=== PATIENT | female | born 1965 | race Caucasian/White ===

== ENCOUNTER 2023-01-11 10:42 | Observation (INO) | payer OTHER ==
[2023-01-11] MEDS ORDERED: NITROGLYCERIN OINT 1 INCH/GM PACKET TOPICAL STA (11:06)
[2023-01-11] MEDS ORDERED: ASPIRIN 81 MG PO STA (11:06)
--- NOTE | 2023-01-11 11:09 | ED ---
General Adult HPI - General Chief complaint: Chest Pain Stated complaint: Chest Pain Time Seen by Provider: 01/11/23 10:55 Source: patient, RN notes reviewed, old records reviewed Mode of arrival: EMS Limitations: no limitations - History of Present Illness Initial comments: This is a 57-year-old female presents emergency Department complaining of chest pain. Patient states she was up walking around when she started having chest pain went down her left arm and then she became short of breath and hot. Patient states she did not begin to sweat but she was feeling very hot. Patient states he gave her nitroglycerin at the facility and it did help her pain. Patient isn't [facility] for pill abuse as well as heroin abuse. Patient states she also has liver disease secondary to taking Dilantin long-term for seizure disorder. Patient states she is no longer on any medication for the seizures. Patient states she still is having some chest pain but it is improved from before. Patient denies any nausea vomiting. Patient denies headache patient denies numbness weakness. Patient denies any lightheadedness or dizziness. - Related Data Home Medications Medication Instructions Recorded Confirmed Calcium, Magnesium, Zinc, With Vit 1 tab PO TID PRN 01/11/23 01/11/23 D3 Docusate [Colace] 100 mg PO BID PRN 01/11/23 01/11/23 EPINEPHrine (Auto Inject) [Epipen] 0.3 mg IM ONCE PRN 01/11/23 01/11/23 Hyoscyamine Sulfate [Levsin] 0.125 mg PO QID PRN 01/11/23 01/11/23 Ibuprofen [Motrin Ib] 600 mg PO Q6H PRN 01/11/23 01/11/23 Lidocaine [Aspercreme Patch] 1 patch TRANSDERM DAILY 01/11/23 01/11/23 Magnesium Hydroxide [Milk of 2,400 mg PO BID PRN 01/11/23 01/11/23 Magnesia] Mirtazapine [Remeron] 15 mg PO HS 01/11/23 01/11/23 Rimegepant Sulfate [Nurtec Odt] 75 mg PO DAILY PRN 01/11/23 01/11/23 buprenorphine HCL [Subutex] 4 mg SL BID 01/11/23 01/11/23 cloNIDine HCL [Catapres] 0.1 mg PO Q4H PRN 01/11/23 01/11/23 ondansetron HCL [Ondansetron HCl] 8 mg PO Q6H PRN 01/11/23 01/11/23 Allergies Allergy/AdvReac Type Severity Reaction Status Date / Time Penicillins Allergy Anaphylaxis Verified 01/11/23 12:22 bee venom protein (honey bee) AdvReac Rash/Hives Verified 01/11/23 12:22 Review of Systems ROS Statement: Those systems with pertinent positive or pertinent negative responses have been documented in the HPI. ROS Other: All systems not noted in ROS Statement are negative. Past Medical History Past Medical History: Liver Disease, Thyroid Disorder Past Surgical History: Cholecystectomy, Hysterectomy, Orthopedic Surgery Past Psychological History: Depression Smoking Status: Current every day smoker Past Alcohol Use History: Abuse Past Drug Use History: Heroin, Opiates General Exam - General Exam Comments Initial Comments: GENERAL: Patient is well-developed and well-nourished. Patient is nontoxic and well- hydrated and is in mild distress. ENT: Neck is soft and supple. No significant lymphadenopathy is noted. Oropharynx is clear. Moist mucous membranes. Neck has full range of motion without eliciting any pain. EYES: The sclera were anicteric and conjunctiva were pink and moist. Extraocular movements were intact and pupils were equal round and reactive to light. Eyelids were unremarkable. PULMONARY: Unlabored respirations. Good breath sounds bilaterally. No audible rales rhonchi or wheezing was noted. CARDIOVASCULAR: There is a regular rate and rhythm without any murmurs gallops or rubs. ABDOMEN: Soft and nontender with normal bowel sounds. SKIN: Skin is clear with no lesions or rashes and otherwise unremarkable. NEUROLOGIC: Patient is alert and oriented x3. Cranial nerves II through XII are grossly intact. Motor and sensory are also intact. Normal speech, volume and content. Symmetrical smile. MUSCULOSKELETAL: Normal extremities with adequate strength and full range of motion. LYMPHATICS: No significant lymphadenopathy is noted PSYCHIATRIC: Normal psychiatric evaluation. Limitations: no limitations Course Vital Signs 01/11/23 01/11/23 10:46 10:51 Temperature 98.7 F Pulse Rate 67 68 Respiratory 20 16 Rate Blood Pressure 127/78 126/68 O2 Sat by Pulse 95 98 Oximetry Medical Decision Making - Medical Decision Making EKG is interpreted by myself. EKG shows a sinus rhythm at 64 bpm GA interval is on a 65 QRS is 78 QT interval 34 QTC is 393. Patient's EKG shows no ST segment elevation or depression Was pt. sent in by a medical professional or institution (, IRINA, COMPENSATION COORDINATOR, urgent care, hospital, or fdc...) When possible be specific @ -[facility] sent the patient in Did you speak to anyone other than the patient for history (EMS, parent, family, police, friend...)? What history was obtained from this source @ -No Did you review nursing and triage notes (agree or disagree)? Why? @ -I reviewed and agree with nursing and triage notes Were old charts reviewed (outside hosp., previous admission, EMS record, old EKG, old radiological studies, urgent care reports/EKG's, fdc records)? Report findings @ -No old charts were reviewed Differential Diagnosis (chest pain, altered mental status, abdominal pain women, abdominal pain men, vaginal bleeding, weakness, fever, dyspnea, syncope, headache, dizziness, GI bleed, back pain, seizure, CVA, palpatations, mental health, musculoskeletal)? @ -Differential Chest Pain: Stable Angina, Unstable Angina, STEMI, NSTEMI Aortic Dissection, Pneumothorax, Musculoskeletal, Esophageal Spasm GERD, Cholecystitis, Pancreatitis, Zoster, this is not meant to be an all-inclusive list. EKG interpreted by me (3pts min.). @ -As above X-rays interpreted by me (1pt min.). @ -Chest x-ray shows no acute abnormality CT interpreted by me (1pt min.). @ -None done U/S interpreted by me (1pt. min.). @ -None done What testing was considered but not performed or refused? (CT, X-rays, U/S, labs)? Why? @ -None What meds were considered but not given or refused? Why? @ -None Did you discuss the management of the patient with other professionals (professionals i.e. , IRINA, COMPENSATION COORDINATOR, lab, RT, psych nurse, social worker delinquency prevention, climbing guide, teacher, special technical operations officer, case consultant)? Give summary @ -I spoke with Dr. Cabral she agreed to admit the patient to the patient wrote admitting orders Was smoking cessation discussed for >3mins.? @ -No Was critical care preformed (if so, how long)? @ -No Were there social determinants of health that impacted care today? How? (Homelessness, low income, unemployed, alcoholism, drug addiction, transportation, low edu. Level, literacy, decrease access to med. care, intermediate, rehab)? @ -No Was there de-escalation of care discussed even if they declined (Discuss DNR or withdrawal of care, Hospice)? DNR status @ -No What co-morbidities impacted this encounter? (DM, HTN, Smoking, COPD, CAD, Cancer, CVA, ARF, Chemo, Hep., AIDS, mental health diagnosis, sleep apnea, morbid obesity)? @ -None Was patient admitted / discharged? Hospital course, mention meds given and route, prescriptions, significant lab abnormalities, going to OR and other pertinent info. @ -Patient's lab work was normal. Patient's chest x-ray was normal. Patient continued to have chest pain that was much improved compared to earlier. Patient will be admitted to Dr. Cabral I will write admitting orders and I will consult cardiology Undiagnosed new problem with uncertain prognosis? @ -No Drug Therapy requiring intensive monitoring for toxicity (Heparin, Nitro, Insulin, Cardizem)? @ -No Were any procedures done? @ -No Diagnosis/symptom? @ -Chest pain Acute, or Chronic, or Acute on Chronic? @ -Acute Uncomplicated (without systemic symptoms) or Complicated (systemic symptoms)? @ -Complicated Side effects of treatment? @ -No Exacerbation, Progression, or Severe Exacerbation? @ -No Poses a threat to life or bodily function? How? (Chest pain, USA, MD, pneumonia, PE, COPD, DKA, ARF, appy, cholecystitis, CVA, Diverticulitis, Homicidal, Suicidal, threat to staff... and all critical care pts) @ -Yes this could lead to myocardial infarction which could lead to end organ dysfunction - Lab Data Result diagrams: 01/11/23 11:06 01/11/23 11:06 Lab Results 01/11/23 01/11/23 01/11/23 Range/Units 11:06 11:06 11:06 WBC 4.3 (3.8-10.6) k/uL RBC 4.07 (3.80-5.40) m/uL Hgb 13.0 (11.4-16.0) gm/dL Hct 39.7 (34.0-46.0) % MCV 97.6 (80.0-100.0) fL MCH 32.0 (25.0-35.0) pg MCHC 32.7 (31.0-37.0) g/dL RDW 12.6 (11.5-15.5) % Plt Count 119 L (150-450) k/uL MPV 8.7 Neutrophils % 62 % Lymphocytes % 26 % Monocytes % 6 % Eosinophils % 5 % Basophils % 1 % Neutrophils # 2.6 (1.3-7.7) k/uL Lymphocytes # 1.1 (1.0-4.8) k/uL Monocytes # 0.2 (0-1.0) k/uL Eosinophils # 0.2 (0-0.7) k/uL Basophils # 0.0 (0-0.2) k/uL PT 11.3 (9.0-12.0) sec INR 1.1 (<1.2) APTT 28.8 (22.0-30.0) sec Sodium 137 (137-145) mmol/L Potassium 4.7 (3.5-5.1) mmol/L Chloride 103 (98-107) mmol/L Carbon Dioxide 22 (22-30) mmol/L Anion Gap 12 mmol/L BUN 21 H (7-17) mg/dL Creatinine 0.68 (0.52-1.04) mg/dL Est GFR (CKD-EPI)AfAm >90 (>60 ml/min/1.73 sqM) Est GFR (CKD-EPI)NonAf >90 (>60 ml/min/1.73 sqM) Glucose 83 (74-99) mg/dL Calcium 9.7 (8.4-10.2) mg/dL Magnesium 1.7 (1.6-2.3) mg/dL Total Bilirubin 0.7 (0.2-1.3) mg/dL AST 33 (14-36) U/L ALT 25 (4-34) U/L Alkaline Phosphatase 54 (38-126) U/L Troponin I (0.000-0.034) ng/mL Total Protein 7.7 (6.3-8.2) g/dL Albumin 4.5 (3.5-5.0) g/dL 01/11/23 Range/Units 11:06 WBC (3.8-10.6) k/uL RBC (3.80-5.40) m/uL Hgb (11.4-16.0) gm/dL Hct (34.0-46.0) % MCV (80.0-100.0) fL MCH (25.0-35.0) pg MCHC (31.0-37.0) g/dL RDW (11.5-15.5) % Plt Count (150-450) k/uL MPV Neutrophils % % Lymphocytes % % Monocytes % % Eosinophils % % Basophils % % Neutrophils # (1.3-7.7) k/uL Lymphocytes # (1.0-4.8) k/uL Monocytes # (0-1.0) k/uL Eosinophils # (0-0.7) k/uL Basophils # (0-0.2) k/uL PT (9.0-12.0) sec INR (<1.2) APTT (22.0-30.0) sec Sodium (137-145) mmol/L Potassium (3.5-5.1) mmol/L Chloride (98-107) mmol/L Carbon Dioxide (22-30) mmol/L Anion Gap mmol/L BUN (7-17) mg/dL Creatinine (0.52-1.04) mg/dL Est GFR (CKD-EPI)AfAm (>60 ml/min/1.73 sqM) Est GFR (CKD-EPI)NonAf (>60 ml/min/1.73 sqM) Glucose (74-99) mg/dL Calcium (8.4-10.2) mg/dL Magnesium (1.6-2.3) mg/dL Total Bilirubin (0.2-1.3) mg/dL AST (14-36) U/L ALT (4-34) U/L Alkaline Phosphatase (38-126) U/L Troponin I <0.012 (0.000-0.034) ng/mL Total Protein (6.3-8.2) g/dL Albumin (3.5-5.0) g/dL Disposition Clinical Impression: Chest pain Disposition: ADMITTED IP TO THIS [facility] Referrals: Nonstaff,Physician [Primary Care Provider] - 1-2 days Time of Disposition: 13:16
[2023-01-11 11:37] LABS: Basophils % (A) 1 %; Eosinophils # (A) 0.2 k/uL (0-0.7); Eosinophils % (A) 5 %; HCT 39.7 % (34.0-46.0); Lymphocytes # (A) 1.1 k/uL (1.0-4.8); Lymphocytes % (A) 26 %; MCHC 32.7 g/dL (31.0-37.0); MCV 97.6 fL (80.0-100.0); Mean Platelet Volume 8.7; Monocytes # (A) 0.2 k/uL (0-1.0); Monocytes % (A) 6 %; Neutrophils # (A) 2.6 k/uL (1.3-7.7); Neutrophils % (A) 62 %; Platelet Count 119 k/uL (150-450); RBC 4.07 m/uL (3.80-5.40); RDW 12.6 % (11.5-15.5); WBC 4.3 k/uL (3.8-10.6)
[2023-01-11 11:46] LABS: ALT 25 U/L (4-34); AST 33 U/L (14-36); African American GFR (CKD) >90 (>60 ml/min/1.73 sqM); Albumin 4.5 g/dL (3.5-5.0); Alkaline Phosphatase 54 U/L (38-126); Anion Gap 12 mmol/L; Blood Urea Nitrogen 21 mg/dL (7-17); Calcium 9.7 mg/dL (8.4-10.2); Carbon Dioxide 22 mmol/L (22-30); Chloride 103 mmol/L (98-107); Glucose 83 mg/dL (74-99); Magnesium 1.7 mg/dL (1.6-2.3); Non-African American GFR(CKD) >90 (>60 ml/min/1.73 sqM); Potassium 4.7 mmol/L (3.5-5.1); Sodium 137 mmol/L (137-145); Total Bilirubin 0.7 mg/dL (0.2-1.3); Total Protein 7.7 g/dL (6.3-8.2)
[2023-01-11 12:00] LABS: INR 1.1 (<1.2); Partial Thromboplastin Time 28.8 sec (22.0-30.0); Prothrombin Time 11.3 sec (9.0-12.0)
--- NOTE | 2023-01-11 12:02 | XR ---
EXAMINATION TYPE: XR chest 2V DATE OF EXAM: 01/11/2023 11:51 AM CLINICAL INDICATION:Female, 57 years old with history of Chest Pain; [facility] COMPARISON: None TECHNIQUE: XR chest 2V Frontal and lateral views of the chest. FINDINGS: Lungs/Pleura: There is no evidence of pleural effusion, focal consolidation, or pneumothorax. Pulmonary vascularity: Unremarkable. Heart/mediastinum: Cardiomediastinal silhouette is unremarkable. Musculoskeletal: No acute osseous pathology. IMPRESSION: No acute cardiopulmonary disease/process.
[2023-01-11] MEDS ORDERED: NITROGLYCERIN SL TABS 0.4 MG TAB SUBLINGUAL PRN (13:29)
[2023-01-11] MEDS ORDERED: HYOSCYAMINE SULFATE 0.125 MG TAB PO PRN (15:21)
[2023-01-11] MEDS ORDERED: CALCIUM CARB-VIT D 500 MG-5 MCG TAB PO PRN (15:21)
[2023-01-11] MEDS ORDERED: MAGNESIUM HYDROXIDE 2,400 MG/30 ML CUP PO PRN (15:21)
[2023-01-11] MEDS ORDERED: DOCUSATE 100 MG CAP PO PRN (15:21)
[2023-01-11] MEDS ORDERED: PATIENT'S OWN (Rimegepant Sulfate [Nurtec Odt] 75 MG Tablet) PO PRN (15:21)
[2023-01-11] MEDS ORDERED: ONDANSETRON 4 MG TAB PO PRN (15:21)
--- NOTE | 2023-01-11 15:41 | P.HPIM ---
History of Present Illness H&P Date: 01/11/23 Patient is a 57-year-old female with history of nicotine dependence and opiate dependence, currently in rehab, migraine headaches presented with sudden onset chest pain, substernal, radiating to left arm as well as jaw. She initially thought it was heartburn, presented to her nurse at [facility], and was referred to the emergency. She is currently chest pain-free. She did have associated nausea, dyspnea, and palpitations. She denies ever having similar chest pain. Just prior to chest pain, she was walking. Her last heroin use was 11 days ago, which she inhales, she is also taking oral opiates. She denies any significant family history of cardiovascular disease. She does smoke 5 cigarettes a day, denies any significant alcohol use. She denies any recent travel history or sick contacts. In the ED, vital signs within normal limits, patient is on room air. Platelet 119, BUN 21, creatinine 0.68, troponin negative 2. Chest x-ray independently interpreted. Patient was given nitroglycerin and aspirin in the ED. Cardiology was consulted. Patient is being admitted for observation for further cardiac workup. Pertinent positives and negatives as discussed in HPI, a complete review of systems was performed and all other systems are negative. Patient seen and examined at bedside. Vital signs reviewed General: nontoxic, no distress, appears at stated age Derm: warm, dry Head: atraumatic, normocephalic, symmetric Eyes: EOMI, no lid lag, anicteric sclera, pupils equal round reactive to light ENT: Nose and ears atraumatic Neck: No thyromegaly, supple Mouth: no lip lesion, mucus membranes moist Cardiovascular: S1S2 reg, no murmur, no edema Lungs: clear to auscultation bilateral, no rhonchi, no rales, no wheeze, no accessory muscle use Abdominal: soft, nontender to palpation, no guarding, no appreciable organomegaly Ext: no gross muscle atrophy, muscle strength muscle strength 5 out of 5 in all 4 extremities, no contractures Neuro: CN II-XII grossly intact Psych: Alert, oriented, appropriate affect Assessment/Plan: Active: Atypical chest pain, rule out ACS -Status post aspirin 324, continue aspirin 81 mg daily -Cardiology consulted -Currently chest pain-free -Continue telemetry Migraine headaches -Restarted home therapy -Avoid NSAIDs for now Nicotine dependence -Counseled regarding smoking cessation Thrombocytopenia, mild -Continue to monitor, CBC tomorrow Chronic: Opiate dependence Patient also claims that she has a history of autoimmune hepatitis The patient is admitted with an anticipated less than 2 midnight stay as observation status for evaluation of chest pain. Surrogate decision-maker: Daughter CODE STATUS: Full code DVT prophylaxis: Patient is ambulatory Anticipated discharge date: 1-[address]: Back to [facility] A total of 55 minutes was spent on the care of this complex patient more than 50% of the time was spent in counseling and care coordination. Past Medical History Past Medical History: Liver Disease, Thyroid Disorder Past Surgical History: Cholecystectomy, Hysterectomy, Orthopedic Surgery Past Psychological History: Depression Smoking Status: Current every day smoker Past Alcohol Use History: Abuse Past Drug Use History: Heroin, Opiates Medications and Allergies Home Medications Medication Instructions Recorded Confirmed Type Calcium, Magnesium, Zinc, With Vit 1 tab PO TID PRN 01/11/23 01/11/23 History D3 Docusate [Colace] 100 mg PO BID PRN 01/11/23 01/11/23 History EPINEPHrine (Auto Inject) [Epipen] 0.3 mg IM ONCE PRN 01/11/23 01/11/23 History Hyoscyamine Sulfate [Levsin] 0.125 mg PO QID PRN 01/11/23 01/11/23 History Ibuprofen [Motrin Ib] 600 mg PO Q6H PRN 01/11/23 01/11/23 History Lidocaine [Aspercreme Patch] 1 patch TRANSDERM DAILY 01/11/23 01/11/23 History Magnesium Hydroxide [Milk of 2,400 mg PO BID PRN 01/11/23 01/11/23 History Magnesia] Mirtazapine [Remeron] 15 mg PO HS 01/11/23 01/11/23 History Rimegepant Sulfate [Nurtec Odt] 75 mg PO DAILY PRN 01/11/23 01/11/23 History buprenorphine HCL [Subutex] 4 mg SL BID 01/11/23 01/11/23 History cloNIDine HCL [Catapres] 0.1 mg PO Q4H PRN 01/11/23 01/11/23 History ondansetron HCL [Ondansetron HCl] 8 mg PO Q6H PRN 01/11/23 01/11/23 History Allergies Allergy/AdvReac Type Severity Reaction Status Date / Time Penicillins Allergy Anaphylaxis Verified 01/11/23 12:22 bee venom protein (honey bee) AdvReac Rash/Hives Verified 01/11/23 12:22 Physical Exam Vitals: Vital Signs Temp Pulse Pulse Resp BP BP Pulse Ox 01/11/23 15:14 98.3 F 55 L 19 110/67 100 01/11/23 14:45 68 16 104/60 98 01/11/23 13:00 68 16 108/68 98 01/11/23 10:51 68 16 126/68 98 01/11/23 10:46 98.7 F 67 20 127/78 95 Intake and Output 01/11/23 01/11/23 01/11/23 06:59 14:59 22:59 Other: Weight 56.699 kg Results CBC & Chem 7: 01/11/23 11:06 01/11/23 11:06 Labs: Abnormal Lab Results - Last 24 Hours (Table) 01/11/23 01/11/23 Range/Units 11:06 11:06 Plt Count 119 L (150-450) k/uL BUN 21 H (7-17) mg/dL
[2023-01-11] MEDS ORDERED: SUMAtriptan succinate 25 MG TAB PO STA (15:43)
[2023-01-11] MEDS: ONDANSETRON 4 MG/2 ML VIAL IVP PRN (16:04)
[2023-01-11] MEDS ORDERED: KETOROLAC 15 MG/ML 1 ML VIAL IVP STA (17:01)
[2023-01-11] MEDS ORDERED: METOCLOPRAMIDE 5 MG/ML 2 ML VIAL IVP STA (17:01)
[2023-01-11] MEDS ORDERED: NITROGLYCERIN OINT 1 INCH/GM PACKET TOPICAL SCH (18:00)
[2023-01-11] MEDS: BUPRENORPHINE HCL 2 MG SUBLINGUAL SCH (20:41)
[2023-01-11] MEDS: cloNIDine HCL 0.1 MG TAB PO PRN (20:42)
[2023-01-11] MEDS: MIRTAZAPINE 15 MG TAB PO SCH (20:43)
[2023-01-12] MEDS: ONDANSETRON 4 MG/2 ML VIAL IVP PRN (04:19)
--- NOTE | 2023-01-12 07:52 | P.CRDCN ---
History of Present Illness Consult date: 01/12/23 Chief complaint: Chest pain History of present illness: The patient is a very pleasant 57-year-old female patient with a past medical history significant for history of heroin he use currently the patient is in the rehab as well as history of smoking and borderline diabetes. She was brought from rehab to the hospital for further evaluation of chest discomfort. She was walking when she started experiencing discomfort in the middle of the chest as a burning sensation with radiation to the left arm or neck. The discomfort lasted for about 10 minutes. Pulses with symptoms of shortness of breath or sweating or dizziness or lightheaded or any feeling of heart racing or fluttering and no presyncope or syncope. She underwent further workup including an EKG and that showed sinus mechanism with no significant ST or T-wave abnormalities beside low-voltage QRS. Cardiac enzymes came in to be unremarkable. The chest x-ray did not show any acute abnormalities. No history of CAD or CHF or cardiac arrhythmia at the patient was seen by a broke worker before. The examination is remarkable for soft blood pressure but she is not on any b lood pressure medication otherwise she has regular rhythm with clear breathing sounds bilaterally and no lower extremities edema she has soft nontender abdomen Assessment Atypical chest discomfort Significant history of smoking History of drug abuse Borderline diabetes Plan Acute coronary event was ruled out Obtain further cardiac testing including stress test and echocardiogram Follow-up with the patient Past Medical History Past Medical History: Liver Disease, Thyroid Disorder Additional Past Medical History / Comment(s): CBD stent. History of Any Multi-Drug Resistant Organisms: None Reported Past Surgical History: Back Surgery, Cholecystectomy, Hysterectomy, Orthopedic Surgery Additional Past Surgical History / Comment(s): Back surgery X2 Past Anesthesia/Blood Transfusion Reactions: No Reported Reaction Past Psychological History: Depression Smoking Status: Current every day smoker Past Drug Use History: Heroin, Opiates Medications and Allergies Home Medications Medication Instructions Recorded Confirmed Type Calcium, Magnesium, Zinc, With Vit 1 tab PO TID PRN 01/11/23 01/11/23 History D3 Docusate [Colace] 100 mg PO BID PRN 01/11/23 01/11/23 History EPINEPHrine (Auto Inject) [Epipen] 0.3 mg IM ONCE PRN 01/11/23 01/11/23 History Hyoscyamine Sulfate [Levsin] 0.125 mg PO QID PRN 01/11/23 01/11/23 History Ibuprofen [Motrin Ib] 600 mg PO Q6H PRN 01/11/23 01/11/23 History Lidocaine [Aspercreme Patch] 1 patch TRANSDERM DAILY 01/11/23 01/11/23 History Magnesium Hydroxide [Milk of 2,400 mg PO BID PRN 01/11/23 01/11/23 History Magnesia] Mirtazapine [Remeron] 15 mg PO HS 01/11/23 01/11/23 History Rimegepant Sulfate [Nurtec Odt] 75 mg PO DAILY PRN 01/11/23 01/11/23 History buprenorphine HCL [Subutex] 4 mg SL BID 01/11/23 01/11/23 History cloNIDine HCL [Catapres] 0.1 mg PO Q4H PRN 01/11/23 01/11/23 History ondansetron HCL [Ondansetron HCl] 8 mg PO Q6H PRN 01/11/23 01/11/23 History Allergies Allergy/AdvReac Type Severity Reaction Status Date / Time Penicillins Allergy Anaphylaxis Verified 01/11/23 12:22 bee venom protein (honey bee) AdvReac Rash/Hives Verified 01/11/23 12:22 Physical Exam Vitals: Vital Signs Temp Pulse Pulse Resp BP BP Pulse Ox 01/12/23 00:18 97.9 F 53 L 15 94/61 98 01/11/23 20:19 98.1 F 67 18 97/64 96 01/11/23 15:14 98.3 F 55 L 19 110/67 100 01/11/23 14:45 68 16 104/60 98 01/11/23 13:00 68 16 108/68 98 01/11/23 10:51 68 16 126/68 98 01/11/23 10:46 98.7 F 67 20 127/78 95 Intake and Output 01/11/23 01/12/23 01/12/23 22:59 06:59 14:59 Other: Voiding Method Toilet # Voids 1 2 Weight 56.699 kg Results 01/11/23 11:06 01/11/23 11:06 Cardiac Enzymes 01/11/23 01/11/23 01/11/23 Range/Units 11:06 11:06 14:21 AST 33 (14-36) U/L Troponin I <0.012 <0.012 (0.000-0.034) ng/mL 01/11/23 Range/Units 17:40 AST (14-36) U/L Troponin I <0.012 (0.000-0.034) ng/mL Coagulation 01/11/23 Range/Units 11:06 PT 11.3 (9.0-12.0) sec APTT 28.8 (22.0-30.0) sec CBC 01/11/23 Range/Units 11:06 WBC 4.3 (3.8-10.6) k/uL RBC 4.07 (3.80-5.40) m/uL Hgb 13.0 (11.4-16.0) gm/dL Hct 39.7 (34.0-46.0) % Plt Count 119 L (150-450) k/uL Comprehensive Metabolic Panel 01/11/23 Range/Units 11:06 Sodium 137 (137-145) mmol/L Potassium 4.7 (3.5-5.1) mmol/L Chloride 103 (98-107) mmol/L Carbon Dioxide 22 (22-30) mmol/L BUN 21 H (7-17) mg/dL Creatinine 0.68 (0.52-1.04) mg/dL Glucose 83 (74-99) mg/dL Calcium 9.7 (8.4-10.2) mg/dL AST 33 (14-36) U/L ALT 25 (4-34) U/L Alkaline Phosphatase 54 (38-126) U/L Total Protein 7.7 (6.3-8.2) g/dL Albumin 4.5 (3.5-5.0) g/dL Current Medications Generic Name Dose Route Start Last Admin Trade Name Freq PRN Reason Stop Dose Admin Aspirin 81 mg 01/12/23 09:00 Aspirin 81 Mg PO DAILY JENNIFER Calcium Carbonate 1 each 01/11/23 15:21 Calcium Carb-Vit D 500 Mg-5 Mcg Tab PO TID PRN withdrawl symptoms Clonidine 0.1 mg 01/11/23 15:21 01/11/23 20:42 Clonidine Hcl 0.1 Mg Tab PO 0.1 mg Q4H PRN Administration Anxiety Docusate Sodium 100 mg 01/11/23 15:21 Docusate 100 Mg Cap PO BID PRN Constipation Epinephrine HCl 0.3 mg 01/11/23 15:21 Epinephrine 1 Mg/Ml 1 Ml Vial IM ONCE PRN Anaphylaxis Hyoscyamine 0.125 mg 01/11/23 15:21 Hyoscyamine Sulfate 0.125 Mg Tab PO QID PRN cramps Lidocaine 1 patch 01/12/23 09:00 Lidocaine 5% Patch TOPICAL DAILY JENNIFER Magnesium Hydroxide 2,400 mg 01/11/23 15:21 Magnesium Hydroxide 2,400 Mg/30 Ml Cup PO BID PRN Constipation Mirtazapine 15 mg 01/11/23 21:00 01/11/23 20:43 Mirtazapine 15 Mg Tab PO 15 mg HS JENNIFER Administration Nitroglycerin 0.4 mg 01/11/23 13:29 Nitroglycerin Sl Tabs 0.4 Mg Tab SUBLINGUAL Q5M PRN Chest Pain Patient's Own ( 4 mg 01/11/23 21:00 01/11/23 20:41 Buprenorphine Hcl [ SUBLINGUAL Not Given Subutex] 2 Mg Tab. BID JENNIFER Subl) Ondansetron HCl 4 mg 01/11/23 15:51 01/12/23 04:19 Ondansetron 4 Mg/2 Ml Vial IVP 4 mg Q6HR PRN Administration Nausea And Vomiting Intake and Output 01/11/23 01/12/23 01/12/23 22:59 06:59 14:59 Other: Voiding Method Toilet # Voids 1 2 Weight 56.699 kg 01/11/23 11:06 01/11/23 11:06
[2023-01-12] MEDS ORDERED: ASPIRIN 325 MG TAB PO SCH (09:00)
[2023-01-12] MEDS: LIDOCAINE 5% PATCH TOPICAL SCH (09:18)
[2023-01-12] MEDS: ASPIRIN 81 MG PO SCH (09:18)
[2023-01-12 10:20] LABS: Chol/HDL Ratio 2.71 Ratio; LDL Cholesterol,Calculated 97.4 mg/dL (0.0-131.0)
[2023-01-12] MEDS: BUPRENORPHINE HCL 2 MG SUBLINGUAL SCH (10:30)
[2023-01-12] MEDS ORDERED: hydrOXYzine HCL 25 MG TAB PO PRN (11:13)
[2023-01-12] MEDS ORDERED: IBUPROFEN 600 MG TAB PO SCH (11:30)
[2023-01-12] MEDS ORDERED: IBUPROFEN 600 MG TAB PO PRN (13:36)
--- NOTE | 2023-01-12 13:38 | P.PN ---
Subjective Progress Note Date: 01/12/23 Hospital Course: Patient is a 57-year-old female with history of nicotine dependence and opiate dependence, currently in rehab, migraine headaches presented with sudden onset chest pain, substernal, radiating to left arm as well as jaw. In the ED, vital signs within normal limits, patient is on room air. Platelet 119, BUN 21, creatinine 0.68, troponin negative 2. Chest x-ray independently interpreted. Patient was given nitroglycerin and aspirin in the ED. Cardiology was consult ed. Patient is being admitted for observation for further cardiac workup. Pending cardiac stress test tomorrow. Subjective: Patient seen and examined at bedside. No acute events overnight. Still complaining of occasional chest discomfort. Pertinent positives and negatives as discussed above, a complete review of systems was performed and all other systems are negative. Vitals Signs Reviewed. General: nontoxic, no distress, appears at stated age Derm: warm, dry Head: atraumatic, normocephalic, symmetric Eyes: EOMI, no lid lag, anicteric sclera Mouth: no lip lesion, mucus membranes moist Cardiovascular: S1S2 reg, no murmur Lungs: CTA bilateral, no rhonchi, no rales , no accessory muscle use Abdominal: soft, nontender to palpation, no guarding, no appreciable organomegaly Ext: no gross muscle atrophy, no edema, no contractures Neuro: CN II-XI grossly intact, no focal neuro deficits Psych: Alert, oriented, appropriate affect Data Reviewed Today: Pertinent Labs: Trop neg x3 Imaging: EKG reviewed from this morning, and apparently interpreted, shows sinus bradycardia. Assessment and Plan: Atypical chest pain, ACS ruled out -continue aspirin 81 mg daily -Cardiology note reviewed, echocardiogram and stress test pending -Currently chest pain-free -Continue telemetry Migraine headaches -No longer having headache, was given Toradol, sumatriptan, Reglan yesterday Anxiety -On hydroxyzine PRN Nicotine dependence -Counseled regarding smoking cessation Thrombocytopenia, mild -No active bleeding Chronic: Opiate dependence Patient also claims that she has a history of autoimmune hepatitis DVT ppx: ambulatory Code status: full Code Anticipated discharge place: pending clinical course Anticipated discharge time: pending clinical course Objective - Vital Signs Vital signs: Vital Signs Temp 97.5 F L 01/12/23 07:00 Pulse 60 01/12/23 07:00 Resp 16 01/12/23 07:00 BP 90/55 01/12/23 07:00 Pulse Ox 97 01/12/23 12:30 FiO2 Intake & Output 01/11/23 01/12/23 01/12/23 18:59 06:59 18:59 Weight 56.699 kg 56.699 kg Other: Voiding Method Toilet # Voids 2 - Labs CBC & Chem 7: 01/11/23 11:06 01/11/23 11:06 Labs: Abnormal Lab Results - Last 24 Hours (Table) 01/11/23 Range/Units 11:06 HDL Cholesterol 64.20 H (40.00-60.00) mg/dL
[2023-01-12] MEDS: cloNIDine HCL 0.1 MG TAB PO PRN (20:26)
[2023-01-12] MEDS: MIRTAZAPINE 15 MG TAB PO SCH (20:26)
[2023-01-12] MEDS: SUBOXONE SUBLINGUAL SCH (20:26)
[2023-01-12] MEDS ORDERED: BUPRENORPHINE-NALOX 8-2 MG TAB 1 EACH TAB.SUBL SL SCH (21:00)
[2023-01-13 03:55] VITALS: RESP 16
[2023-01-13] MEDS ORDERED: REGADENOSON 0.4 MG/5 ML SYRINGE IV PRN (06:00)
[2023-01-13] MEDS ORDERED: CAFFEINE CITRATE 60 MG/3 ML VIAL IV PRN (06:00)
[2023-01-13] MEDS ORDERED: AMINOPHYLLINE 500 MG/20 ML VIAL IV PRN (06:00)
[2023-01-13] MEDS: ONDANSETRON 4 MG/2 ML VIAL IVP PRN (06:33)
[2023-01-13] MEDS: LIDOCAINE 5% PATCH TOPICAL SCH (08:20)
[2023-01-13] MEDS: ASPIRIN 81 MG PO SCH (08:20)
[2023-01-13] MEDS: SUBOXONE SUBLINGUAL SCH (08:20)
[2023-01-13 09:18] VITALS: BP 95/63; PULSE 63; TEMP 97.8
--- NOTE | 2023-01-13 10:47 | P.PN ---
Subjective HISTORY OF PRESENT ILLNESS: The patient is a very pleasant 57-year-old female patient with a past medical history significant for history of heroin he use currently the patient is in the rehab as well as history of smoking and borderline diabetes. She was brought from rehab to the hospital for further evaluation of chest discomfort. She was walking when she started experiencing discomfort in the middle of the chest as a burning sensation with radiation to the left arm or neck. The discomfort lasted for about 10 minutes. Pulses with symptoms of shortness of breath or sweating or dizziness or lightheaded or any feeling of heart racing or fluttering and no presyncope or syncope. She underwent further workup including an EKG and that showed sinus mechanism with no significant ST or T-wave abnormalities beside l ow-voltage QRS. Cardiac enzymes came in to be unremarkable. The chest x-ray did not show any acute abnormalities. No history of CAD or CHF or cardiac arrhythmia at the patient was seen by a diesel powerplant mechanic helper before. 01/13/2023 Patient examined this morning at the bedside. Patient denies any further episodes of chest pain or pressure and she denies any shortness of breath. Vi priscilla signs have been stable. PHYSICAL EXAM: VITAL SIGNS: Reviewed. GENERAL: Well-developed in no acute distress. NECK: Supple. No JVD or thyromegaly LUNGS: Respirations even and unlabored. Lungs essentially clear to auscultation bilaterally. HEART: Regular rate and rhythm. S1 and S2 heard. EXTREMITIES: Normal range of motion. No clubbing or cyanosis. Peripheral pulses intact. No lower extremity edema ASSESSMENT: Chest pain, atypical, troponin negative 3 Nicotine dependence History of drug abuse Borderline diabetes PLAN: 2-D echo has been ordered. Await results Patient to undergo Lexiscan stress test today If negative, she may be discharged today from a cardiac standpoint Nurse practitioner note has been reviewed by physician. Signing provider agrees with the documented findings, assessment, and plan of care. Objective - Vital Signs Vital signs: Vital Signs Temp 97.8 F 01/13/23 07:00 Pulse 63 01/13/23 07:00 Resp 16 01/13/23 07:00 BP 95/63 01/13/23 07:00 Pulse Ox 98 01/13/23 07:00 FiO2 Intake & Output 01/12/23 01/13/23 01/13/23 18:59 06:59 18:59 Other: Voiding Method Toilet Toilet # Voids 5 1 # Bowel Movements 1 - Labs CBC & Chem 7: 01/11/23 11:06 01/11/23 11:06
[2023-01-13] MEDS: cloNIDine HCL 0.1 MG TAB PO PRN (12:40)
--- NOTE | 2023-01-13 13:15 | NM ---
EXAMINATION TYPE: NM stress lexiscan cardiolite DATE OF EXAM: 01/13/2023 COMPARISON: NONE CLINICAL INDICATION: Female, 57 years old with history of chest pain; TECHNIQUE: After the intravenous administration of 9.5 mCi Tc 99m Sestamibi - Cardiolite resting SPE CT images acquired 100 minutes post injection. The patient received 0.4mg Lexiscan, 25.9 mCi Tc 99m Sestamibi - Stress images obtained [address] injection FINDINGS: Review of stress and rest SPECT images demonstrates no distinct perfusion abnormality. Gated analysi s shows normal wall motion with an estimated left ventricular ejection fraction of 74 %. IMPRESSION: No scintigraphic evidence for reversible ischemia.
--- NOTE | 2023-01-13 14:21 | P.DS ---
Providers Date of admission: 01/11/23 13:30 Expected date of discharge: 01/13/23 Attending physician: Melany Cabral DO Consults: 01/11/23 13:30 Consult Physician Urgent Consulting Provider: [facility] Consult Reason/Comments: Chest pain Do you want consulting provider notified?: Yes Primary care physician: Physician Nonstaff Hospital Course: Discharge Diagnosis: Noncardiac chest pain Anxiety Migraine headaches Nicotine dependence Thrombocytopenia Opiate dependence Hospital Course: Patient is a 57-year-old female with history of nicotine dependence and opiate dependence, currently in rehab, migraine headaches presented with sudden onset chest pain, substernal, radiating to left arm as well as jaw. In the ED, vital signs within normal limits, patient is on room air. Platelet 119, BUN 21, creatinine 0.68, troponin negative 2. Chest x-ray independently interpreted. Patient was given nitroglycerin and aspirin in the ED. Cardiology was co nsulted. Patient is being admitted for observation for further cardiac workup. Stress test negative. Patient being discharged back to [facility]. Patient seen and examined at bedside. Vital signs reviewed and stable. General: nontoxic, no distress, appears at stated age Derm: warm, dry Head: atraumatic, normocephalic, symmetric Eyes: EOMI, no lid lag, anicteric sclera Mouth: no lip lesion, mucus membranes moist Cardiovascular: S1S2 reg, no murmur Lungs: CTA bilateral, no rhonchi, no rales , no accessory muscle use Abdominal: soft, nontender to palpation, no guarding, no appreciable o rganomegaly Ext: no gross muscle atrophy, no edema, no contractures Neuro: CN II-XI grossly intact, no focal neuro deficits Psych: Alert, oriented, appropriate affect A total of 36 minutes of time were spent preparing this complex discharge summary. Patient was discharged on 01/13/23 at 1337. Patient Condition at Discharge: Stable Plan - Discharge Summary New Discharge Prescriptions: Continue Lidocaine [Aspercreme Patch] 1 patch TRANSDERM DAILY EPINEPHrine (Auto Inject) [Epipen] 0.3 mg IM ONCE PRN PRN Reason: Anaphylaxis Ibuprofen [Motrin Ib] 600 mg PO Q6H PRN PRN Reason: Pain Or Fever > 100.5 cloNIDine HCL [Catapres] 0.1 mg PO Q4H PRN PRN Reason: Anxiety Rimegepant Sulfate [Nurtec Odt] 75 mg PO DAILY PRN PRN Reason: Migraine Headache buprenorphine HCL [Subutex] 4 mg SL BID ondansetron HCL [Zofran] 8 mg PO Q6H PRN PRN Reason: Nausea Mirtazapine [Remeron] 15 mg PO HS Magnesium Hydroxide [Milk of Magnesia] 2,400 mg PO BID PRN PRN Reason: Constipation Hyoscyamine Sulfate [Levsin] 0.125 mg PO QID PRN PRN Reason: cramps Docusate [Colace] 100 mg PO BID PRN PRN Reason: Constipation Calcium, Magnesium, Zinc, With Vit D3 1 tab PO TID PRN PRN Reason: withdrawl symptoms Discharge Medication List Calcium, Magnesium, Zinc, With Vit D3 1 tab PO TID PRN 01/11/23 [History] Docusate [Colace] 100 mg PO BID PRN 01/11/23 [History] EPINEPHrine (Auto Inject) [Epipen] 0.3 mg IM ONCE PRN 01/11/23 [History] Hyoscyamine Sulfate [Levsin] 0.125 mg PO QID PRN 01/11/23 [History] Ibuprofen [Motrin Ib] 600 mg PO Q6H PRN 01/11/23 [History] Lidocaine [Aspercreme Patch] 1 patch TRANSDERM DAILY 01/11/23 [History] Magnesium Hydroxide [Milk of Magnesia] 2,400 mg PO BID PRN 01/11/23 [History] Mirtazapine [Remeron] 15 mg PO HS 01/11/23 [History] Rimegepant Sulfate [Nurtec Odt] 75 mg PO DAILY PRN 01/11/23 [History] buprenorphine HCL [Subutex] 4 mg SL BID 01/11/23 [History] cloNIDine HCL [Catapres] 0.1 mg PO Q4H PRN 01/11/23 [History] ondansetron HCL [Zofran] 8 mg PO Q6H PRN 01/11/23 [History] Follow up Appointment(s)/Referral(s): Nonstaff,Physician [Primary Care Provider] - 1-2 days Patient Instructions/Handouts: Chest Pain (DC) Activity/Diet/Wound Care/Special Instructions: Please see PCP. Discharge Disposition: OTHER INSTITUTION NOT DEFINED
--- NOTE | 2023-01-13 17:53 | CA ---
Transthoracic Echo Report Name: Lilian Oliva Age: 57 Gender: F : 1965 Exam Date: 01/13/2023 10:50 Exam Location: [facility] Ht (in): 61 Wt (lb): 125 Ordering Physician: Vitor Pope MD ([id number]) Attending/Referring Phys: Resaw Tailer Celine Estevez RDCS Procedure CPT: Indications: Chest Pain Cardiac Hx: Technical Quality: Good Contrast 1: Total Dose (mL): Contrast 2: Total Dose (mL): MEASUREMENTS (Male / Female) Normal Values 2D ECHO LV Diastolic Diameter PLAX 4.6 cm 4.2 - 5.9 / 3.9 - 5.3 cm LV Systolic Diameter PLAX 2.6 cm IVS Diastolic Thickness 0.9 cm 0.6 - 1.0 / 0.6 - 0.9 cm LVPW Diastolic Thickness 0.9 cm 0.6 - 1.0 / 0.6 - 0.9 cm LV Relative Wall Thickness 0.4 RV Internal Dim ED PLAX 3.3 cm LA Systolic Diameter LX 3.2 cm 3.0 - 4.0 / 2.7 - 3.8 cm LV Diastolic Volume MOD 4C 78.9 cm??? LV Systolic Volume MOD 4C 33.1 cm??? LV Ejection Fraction MOD 4C 58.1 % LV Cardiac Index MOD 4C 1953.2 cm???/min???m??? LV Diastolic Length 4C 7.5 cm LV Systolic Length 4C 5.9 cm LV Diastolic Volume MOD 2C 67.2 cm??? LV Systolic Volume MOD 2C 23.5 cm??? LV Ejection Fraction MOD 2C 65.0 % LV Cardiac Index MOD 2C 1864.1 cm???/min???m??? LV Diastolic Length 2C 6.5 cm LV Systolic Length 2C 5.8 cm LA Volume 42.3 cm??? 18 - 58 / 22 - 52 cm??? LA Volume Index 27.0 cm???/m??? 16 - 28 cm???/m??? M-MODE Aortic Root Diameter MM 3.6 cm MV E Point Septal Separation 0.8 cm AV Cusp Separation MM 2.6 cm DOPPLER AV Peak Velocity 192.2 cm/s AV Peak Gradient 14.8 mmHg MV Area PHT 3.0 cm??? Mitral E Point Velocity 60.5 cm/s Mitral A Point Velocity 46.5 cm/s Mitral E to A Ratio 1.3 MV Deceleration Time 256.5 ms MV E' Velocity 4.8 cm/s Mitral E to MV E' Ratio 12.6 TR Peak Velocity 192.8 cm/s TR Peak Gradient 14.9 mmHg Right Ventricular Systolic Press 19.4 mmHg FINDINGS Left Ventricle Left ventricular ejection fraction is estimated at 55-60 %. Left ventricular cavity size normal. Left ventricular wall thickness normal. Right Ventricle Normal right ventricular size. Right ventricular systolic pressure within normal limits. Right Atrium Normal right atrial size. Left Atrium Normal left atrial size. Mitral Valve Structurally normal mitral valve. No mitral stenosis. No evidence for mitral valve prolapse. Trace mitral regurgitation. Aortic Valve Trileaflet aortic valve. Tricuspid Valve Structurally normal tricuspid valve. Trace to mild tricuspid regurgitation. Pulmonic Valve Pulmonic valve not well visualized. Pericardium No pericardial effusion. Aorta Normal size aortic root and proximal ascending aorta. CONCLUSIONS Normal LV systolic function Previewed by: Dr. Janes Reed MD (Electronically Signed) Final Date: 13 January 2023 17:52
--- NOTE | 2023-01-13 17:56 | CA ---
Lexiscan Nuclear Stress Test Report Name: Lilian Oliva Exam Date: 01/13/2023 10:19 Exam Location: [facility] Ht (in): 61 Wt (lb): 120 BSA: 1.52 Ordering Phys: Vitor Pope MD Referring Phys: Song, Technologist: Miguel Almodovar Age: 57 Gender: F : 1965 Procedure CPT: Indications: Reflex order-Stress test ICD-10 Codes: Patient History: Medications: SEE CHART Meds past 24 hrs: Pretest Chest Pain: STRESS TEST Lexiscan Protocol Exercise Duration (min:sec): 02:[address] Depressions (mm): Angina Score: Wilcox Score: Resting HR (bpm): 69 Peak HR (bpm): 106 Resting BP (mmHg): 94 / 70 Peak BP (mmHg): 128 / 82 MPHR: 165 Target HR: 140 % MPHR: 64 METS: 1.0 Total Dose: Peak Dose: Atropine: Double Product: 70164 BP Response: Stress Termination: PROTOCOL COMPLETE Stress Symptoms: NAUSEA Stress Summary: ECG ANALYSIS Resting ECG: Stress ECG: CONCLUSIONS No evidence for ischemia or arrhythmia during Lexiscan infusion Nuclear portion will be reported separately Dr. Janes Reed MD (Electronically Signed) Final Date: 13 January 2023 17:55
[2023-01-14] MEDS ORDERED: BUPRENORPHINE-NALOX 8-2 MG TAB 1 EACH TAB.SUBL SL SCH (21:00)
== END 2023-01-13 16:05 | disposition home or self-care (01) ==
LOC: EC 10:42 → 6NMEDSUR 13:30
PROVIDERS: ADMIT Internal Medicine; ATTEND Internal Medicine
DX: R07.89 Other chest pain (principal); D69.6 Thrombocytopenia, unspecified; F32.A Depression, unspecified; F41.9 Anxiety disorder, unspecified; G40.909 Epilepsy, unspecified, not intractable, without status epilepticus; G43.909 Migraine, unspecified, not intractable, without status migrainosus; I10 Essential (primary) hypertension; F11.20 Opioid dependence, uncomplicated; F17.210 Nicotine dependence, cigarettes, uncomplicated; Z79.82 Long term (current) use of aspirin; K75.4 Autoimmune hepatitis; K76.9 Liver disease, unspecified
CPT/HCPCS: 96376 ×2; 96375; 96365; 99285; 36415; 94760 ×2; 93005; 93017; 93306; 80061; 80053; 83735; 84484; 85025; 85610; 85730; 71046; 78452; G0378 ×3; A9500; J2765; J2405 ×3; J2785; J1885